=== PATIENT | female | born 1960 | race African-American/Black ===

== ENCOUNTER 2018-12-21 18:42 | Emergency (ER) | payer OTHER ==
[~2018-12-21] VITALS: Ht 190.5 cm; Wt 122.5 kg
[2018-12-21 19:06] VITALS: BP 138/77
[2018-12-21] MEDS ORDERED: PRED20TA PO (20:09)
[2018-12-21] MEDS ORDERED: DIPH25CA58 PO (20:09)
--- NOTE | 2018-12-21 20:10 | PHYS DOC ---
Past Medical History Past Medical History: Hypertension Past Surgical History: Appendectomy Alcohol Use: Rarely Drug Use: None Adult General Chief Complaint Chief Complaint: FACE PROBLEM HPI HPI Patient is a 58 year old female who presents with facial swelling. Patient states that she woke up at five o'clock this morning with left lip swelling and left sided facial numbness and tingling underneath her left eye that travels over to the left in front of her left ear. She denies having any symptoms on the right side of her face. 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 Patient states that she recently started eating yogurt again. Patient also reports that she has been on Lisinopril for about twenty years. Patient denies taking any medication at home for her symptoms. Patient states that her symptoms worsened throughout the day, prompting her to come to the ED for an evaluation. She denies any aggravating or alleviating factors. She denies dysphagia, vision changes, tongue swelling, facial droop, slurred speech, shortness of breath, and chest pain. Review of Systems Review of Systems Constitutional: Denies fever or chills Eyes: Denies change in visual acuity, redness, or eye pain HENT: Denies nasal congestion or sore throat Respiratory: Denies cough or shortness of breath Cardiovascular: Denies chest pain or palpitations GI: Denies abdominal pain, nausea, vomiting, or diarrhea : Denies dysuria or hematuria Musculoskeletal: Denies back pain or joint pain Integument: Denies rash or skin lesions Neurologic: Denies headache or focal weakness Complete systems were reviewed and found to be within normal limits, except as documented in this note. Current Medications Current Medications Current Medications Medications (Trade) Dose Ordered Sig/Ariana Start Time Stop Time Status Last Admin Dose Admin Dexamethasone (Decadron) 10 mg 1X ONCE 12/21/18 20:15 12/21/18 20:16 DC 12/21/18 20:21 10 MG Diphenhydramine HCl (Benadryl) 50 mg 1X ONCE 12/21/18 20:15 12/21/18 20:16 DC 12/21/18 20:22 50 MG Allergies Allergies Allergies Coded Allergies Type Severity Reaction Last Updated Verified Penicillins Allergy Severe HIVES 12/21/18 Yes Physical Exam Physical Exam Constitutional: Well developed, well nourished, no acute distress, non-toxic appearance. HENT: Normocephalic, atraumatic, bilateral external ears normal, oropharynx moist, uvula midline, no tongue swelling, no tonsillar swelling, nose normal, mild swelling of left upper lip noted. Eyes: PERRL, EOMI, conjunctiva normal, no discharge. Neck: Normal range of motion, supple, no stridor. Cardiovascular:Heart rate regular rhythm, no murmur Lungs & Thorax: Bilateral breath sounds clear to auscultation Abdomen: Bowel sounds normal, soft, no tenderness on palpation Skin: Warm, dry, no rash. Back: No tenderness, no CVA tenderness. Extremities: No tenderness, no clubbing, ROM intact, no edema. Neurologic: Alert and oriented X3, normal motor function, normal sensory function, no focal deficits noted. No facial droop. No slurred speech. Psychologic: Affect normal. Speech normal. Current Patient Data Vital Signs Vital Signs Date Time Temp Pulse Resp B/P (MAP) Pulse Ox O2 Delivery O2 Flow Rate FiO2 12/21/18 19:06 98.5 79 18 138/77 (97) 100 Room Air 98.5 EKG EKG [] Radiology/Procedures Radiology/Procedures [] Course & Med Decision Making Course & Med Decision Making Patient is a 58 year old female who presents to the ED for facial swelling. Patient was instructed to stop taking Lisinopril, as it can cause angioedema. Patient was treated with 10mg Dexamethasone PO and 50mg Diphenhydramine PO in the ED. Patient has an appointment with her primary care physician on 12/30/18. Patient was advised to try and move the appointment up sooner regarding her HTN medication. Patient given prescriptions for diphenhydramine and prednisone. Patient stable for discharge home with close follow up with her PCP. Patient verbalized understanding and agreed with plan. Dragon Disclaimer Dragon Disclaimer This electronic medical record was generated, in whole or in part, using a voice recognition dictation system. Departure Departure Impression: Primary Impression: Angioedema Disposition: HOME, SELF-CARE Condition: STABLE Referrals: PARISH MANE APRN (PCP) Patient Instructions: Angioedema, [id number] Additional Instructions: Discontinue Lisinopril Scripts Prednisone (PREDNISONE) 20 Mg Tablet 2 TAB PO DAILY, #8 TAB Prov: MITCHELL BECKER DO 12/21/18 Diphenhydramine Hcl (BENADRYL) 25 Mg Capsule 1 CAP PO QID, #30 CAP Prov: MITCHELL BECKER DO 12/21/18 Problem Qualifiers Primary Impression: Angioedema Encounter type: initial encounter Qualified Codes: T78.3XXA - Angioneurotic edema, initial encounter MITCHELL BECKER DO Dec 21, 2018 20:10
[2018-12-21] MEDS ORDERED: diphenhydrAMINE HCL 25 MG CAPSULE PO ONE (20:15)
[2018-12-21] MEDS ORDERED: DEXAMETHASONE 4 MG TABLET PO ONE (20:15)
== END 2018-12-21 20:24 | disposition home or self-care (01) ==
LOC: ER 18:42
DX: T78.3XXA Angioneurotic edema, initial encounter (principal); I10 Essential (primary) hypertension; Z88.0 Allergy status to penicillin; Z91.011 Allergy to milk products
CPT/HCPCS: 99283; J8540; Q0163

== ENCOUNTER 2021-03-13 19:21 | Emergency (ER) | payer MEDICAID ==
[~2021-03-13] VITALS: Ht 188 cm; Wt 125.0 kg
[~2021-03-13 19:21] MED LIST: DIPH25CA58 PO; PRED20TA PO
--- NOTE | 2021-03-13 19:37 | PHYS DOC ---
Past Medical History Past Medical History: Hypertension Past Surgical History: Appendectomy Smoking Status: Never Smoker Alcohol Use: Rarely Drug Use: None General Adult EDM: Chief Complaint: CHEST PAIN HPI: HPI: Patient is a 60 year old male past medical history hypertension hyperlipidemia presents with a chief complaint of chest pain. Patient states she has had chest pain for at least 3 days. Chest pain is described as a pressure located in her center of her chest. Patient states pain comes and goes. She states she has associated left arm discomfort which he described as someone pulling on her arm as well as numbness and tingling in her fingers. Patient denies any associated shortness of breath nausea vomiting or diaphoresis. Review of Systems: Review of Systems: Review of systems: Constitutional symptoms- No fever, no chills. Eyes- No Discharge, No Visual Loss Respiratory symptoms- No shortness of breath, No wheezing, No Dyspnea on Exertion Cardiovascular Systems; Positive chest pain, No Palpitations, No syncope Gastrointestinal symptoms: NO abdominal pain, no nausea, no vomiting or diarrhea. Genitourinary symptoms: No dysuria. Musculoskeletal symptoms: No back pain No extremity pain. NEUROLOGICAL Symptoms: No headache, no generalized weakness; No focal Weakness Skin: No rash. Heart Score: C/O Chest Pain: Yes HEART Score for Chest Pain: HEART Score for Chest Pain Response (Comments) Value History Slighlty/Non-Suspicious 0 ECG Normal 0 Age >45 - < 65 1 Risk Factors 1 or 2 Risk Factors 1 Troponin < Normal Limit 0 Total 2 Risk Factors: Risk Factors: DM, Current or recent (<one month) smoker, HTN, HLP, family history of CAD, obesity. Risk Scores: Score 0 - 3: 2.5% MACE over next 6 weeks - Discharge Home Score 4 - 6: 20.3% MACE over next 6 weeks - Admit for Clinical Observation Score 7 - 10: 72.7% MACE over next 6 weeks - Early Invasive Strategies Allergies: Allergies: Allergies Coded Allergies Type Severity Reaction Last Updated Verified Penicillins Allergy Severe HIVES 12/21/18 Yes Physical Exam: PE: Constitutional: Well developed, well nourished, no acute distress, non-toxic appearance. [] HENT: Normocephalic, atraumatic, bilateral external ears normal, oropharynx moist, no oral exudates, nose normal. [] Eyes: PERRLA, EOMI, conjunctiva normal, no discharge. [] Neck: Normal range of motion, no tenderness, supple, no stridor. [] Cardiovascular:Heart rate regular rhythm, no murmur [] Lungs & Thorax: Bilateral breath sounds clear to auscultation [] Abdomen: Bowel sounds normal, soft, no tenderness, no masses, no pulsatile masses. [] Skin: Warm, dry, no erythema, no rash. [] Back: No tenderness, no CVA tenderness. [] Extremities: No tenderness, no cyanosis, no clubbing, ROM intact, no edema. [] Neurologic: Alert and oriented X 3, normal motor function, normal sensory function, no focal deficits noted. [] Psychologic: Affect normal, judgement normal, mood normal. [] EKG: EKG: [] Performed at 1930 Rate 93 Normal sinus rhythm No ST elevation No ST depression No acute [place] Radiology/Procedures: Radiology/Procedures: [] Impression: EXAM: CHEST 1 VIEW History: Chest pain COMPARISON: None available. TECHNIQUE: Single portable radiograph of the chest FINDINGS: The cardiac silhouette is unremarkable. The lungs are clear bilaterally. The costophrenic sulci are clear and well demarcated. IMPRESSION: No radiographic evidence of an acute cardiopulmonary process. Course & Med Decision Making: Course & Med Decision Making Pertinent Labs and Imaging studies reviewed. (See chart for details) [] Patient was evaluated for chief complaint. Work-up consisted of laboratory analysis and radiologic imaging. Results reviewed and discussed with the patient. EKG chest x-ray troponin within normal limits. Patient's heart score 2. Patient received aspirin. Patient be discharged home with instructions to follow-up with her primary care physician. Tano Disclaimer: Tano Disclaimer: This electronic medical record was generated, in whole or in part, using a voice recognition dictation system. Departure Departure Impression: Primary Impression: Chest pain Disposition: HOME / SELF CARE / HOMELESS Condition: STABLE Referrals: PARISH MANE APRN (PCP) Patient Instructions: Chest Pain (Nonspecific) RUT FOX DO Mar 13, 2021 19:37
[2021-03-13 20:04] LABS: BASO % 1 % (0-3); EOS # 0.1 x10^3/uL (0.0-0.7); EOS % 1 % (0-3); HEMATOCRIT 34.5 % (36.0-47.0); HEMOGLOBIN 11.4 g/dL (12.0-15.5); LYMPH # 1.9 x10^3/uL (1.0-4.8); LYMPH % 30 % (24-48); MEAN CORPUSCULAR HEMOGLOBIN 28 pg (25-35); MEAN CORPUSCULAR HGB CONC 33 g/dL (31-37); MEAN CORPUSCULAR VOLUME 84 fL (79-100); MONO # 0.5 x10^3/uL (0.0-1.1); MONO % 8 % (0-9); NEUT # 3.8 x10^3/uL (1.8-7.7); NEUT % 60 % (31-73); PLATELET COUNT 257 x10^3/uL (140-400); RED BLOOD COUNT 4.12 x10^6/uL (3.50-5.40); RED CELL DISTRIBUTION WIDTH 14.1 % (11.5-14.5); WHITE BLOOD COUNT 6.3 x10^3/uL (4.0-11.0)
[2021-03-13 20:12] LABS: CREATININE 1.2 mg/dL (0.6-1.0); GFR 55.1; POTASSIUM 3.9 mmol/L (3.5-5.1)
[2021-03-13 20:18] LABS: ALBUMIN 3.9 g/dL (3.4-5.0); TOTAL BILIRUBIN 0.2 mg/dL (0.2-1.0); TOTAL PROTEIN 7.9 g/dL (6.4-8.2)
--- NOTE | 2021-03-13 20:36 | RAD ---
EXAM: CHEST 1 VIEW History: Chest pain COMPARISON: None available. TECHNIQUE: Single portable radiograph of the chest FINDINGS: The cardiac silhouette is unremarkable. The lungs are clear bilaterally. The costophrenic sulci are clear and well demarcated. IMPRESSION: No radiographic evidence of an acute cardiopulmonary process. Electronically signed by: Chito Cruz MD (03/13/2021 8:34 PM) [id number]
--- NOTE | 2021-03-13 20:36 | EKG ---
[facility] [address] [place] [address] Test Date: 2021-03-13 Test Time: 19:30:42 Pat Name: ROSS RILEY Department: Room: Gender: F Supervisor Weaving: : 1960 Requested By: RUT FOX Order Number: [id number] Reading MD: Measurements Intervals [place] Rate: 93 P: 62 NC: 186 QRS: 22 QRSD: 96 T: 82 QT: 360 QTc: 450 Interpretive Statements SINUS RHYTHM T ABNORMALITY IN HIGH LATERAL LEADS ABNORMAL ECG RI6.01 Compared to ECG 03/13/2021 19:25:07 T-wave abnormality now present Atrial abnormality no longer present
[2021-03-13] MEDS ORDERED: ASPIRIN CHEWABLE 81 MG TABLET. PO ONE (20:45)
[2021-03-13 21:06] VITALS: BP 190/102
== END 2021-03-13 21:15 | disposition home or self-care (01) ==
LOC: ER 19:21
DX: R07.89 Other chest pain (principal); M79.602 Pain in left arm; I10 Essential (primary) hypertension; Z88.0 Allergy status to penicillin
CPT/HCPCS: 36415; 71045; 80053; 83735; 84484; 85025; 93005; 99285-25